=== PATIENT | female | born 1980 | race African-American/Black ===

== ENCOUNTER 2019-07-05 17:39 | Emergency (ER) | payer SELFPAY ==
[~2019-07-05] VITALS: Ht 172.7 cm; Wt 95.3 kg
[2019-07-05] MEDS ORDERED: Acetaminophen 500mg (ES) tab ORAL ONE ×2 (17:45→17:54)
--- NOTE | 2019-07-05 17:52 | NUR ---
ED Nurse Note: xray at bedside
--- NOTE | 2019-07-05 17:52 | NUR ---
ED Nurse Note: ERMD at bedside
--- NOTE | 2019-07-05 17:56 | NUR ---
ED Nurse Note: Patient BIBA from home d/t headache started today. Patient states she has history of HTN and DM, has not taken her BP meds for 2 days. Patient was placed on hospital gown, cont. asset protection manager showing sinus tachycardia with HR of 120's, cont pulse ox, patient saturating 100%; no respiratory distress. C/o headache 7/10 pain scale; denies n/v. Blood glucose 135. IV on right hand 18g intact and patent, established en route per EMS. ERMD at bedside. Will continue to monitor patient and carry out orders.
--- NOTE | 2019-07-05 17:58 | Emergency Room Report ---
History of Present Illness General Chief Complaint: Headache Source: Patient Present Illness HPI Disclaimer: Please note that this report is being documented using [employer] technology. This can lead to erroneous entry secondary to incorrect interpretation by the dictating instrument. HPI: 39-year-old female history of hypertension presents for evaluation of headache and elevated blood pressures. The patient states EMS was called by her mother as she was difficult to arouse and had a prolonged sleep. States she has been feeling generally unwell for the past few days noting fatigue, congestion, sore throat but denies vomiting, diarrhea, severe chest pain, cough , shortness of breath or other symptoms. She was found to be tachycardic and hypertensive with systolic blood pressures in the 190s. At the time she was complaining of a bilateral temporal throbbing headache. She denies visual changes and states her headache is improved. Says that she has been without her antihypertensive medications for 2 days because she forgot to take them. Cannot recall which medication she is taking. She continues to complain of bilateral lower rib pain which she has had for several days. Otherwise she states she has no symptoms and is generally improved. Heart rate is tachycardic but states she has no history of abnormal heart rhythm such as SVT, A. fib, a flutter or other heart diseases. She uses alcohol but has not used any in the past few days. Denies any withdrawal or daily use. Remote history of drug use but states she has been off drugs for years. PMH: Hypertension, remote drug use PSH: Denies Allergies: Denies Social Hx: Occasional alcohol use, remote drug use, denies tobacco use Allergies: Coded Allergies: No Known Allergies (Unverified , 07/05/19) Patient History Now: No Nursing Documentation-PMH Past Medical History: No History, Except For Hx Hypertension: Yes Hx Asthma: Yes Hx Diabetes: Yes Review of Systems All Other Systems: negative except mentioned in HPI Physical Exam Vital Signs Date Time Temp Pulse Resp B/P (MAP) Pulse Ox O2 Delivery O2 Flow Rate FiO2 07/05/19 17:35 99.9 127 16 110/70 (83) 98 Room Air General: Awake and alert, appears anxious and somewhat restless HEENT: NC/AT. EOMI. PERRLA. Pupils are 4 mm and reactive bilaterally. Dry mucous membranes Neck: Supple, trachea midline Chest Wall: Mild tenderness over the lower ribs bilaterally without crepitus or deformity. No tenderness, no deformity Cardiovascular: Tachycardic. S1 and S2 normal. No murmur appreciated Resp: Normal work of breathing. No cough, wheezing or crackles appreciated Abdomen: Abdomen is soft, nondistended. Tenderness in the epigastrium but no significant tenderness in the right or left upper quadrants. Otherwise nontender. Obese abdomen Skin: Intact. No abrasions, laceration or rash over the exposed skin MSK: Normal tone and bulk. Moving all extremities. No obvious deformity. Neuro: Awake and alert. Mentating appropriately. No nystagmus. Visual alcantara are full. Symmetrical facial expressions. Moving all extremities. Medical Decision Making Diagnostic Impression: Primary Impression: Headache Additional Impressions: Hypertension Amphetamine abuse ER Course 39-year-old female with a history of hypertension presents for evaluation of elevated blood pressures, tachycardia and reported headache. Patient states her symptoms are almost resolved though she does remain tachycardic she denies palpitations or chest pain. She has been complaining of bilateral rib pain for several days and states she is been feeling generally rundown and unwell. States her mom called EMS that she was difficult to arouse and slept for nearly 18 hours which she attributes to exhaustion and general illness. Denies any alcohol or drug use recently. We will start broad metabolic infectious and toxicologic work-up. Her blood pressures on arrival are within normal limits with current blood pressure 112/65. Laboratory Tests Test 07/05/19 17:45 07/05/19 18:49 White Blood Count 16.9 K/UL (4.8-10.8) H Red Blood Count 4.66 M/UL (4.20-5.40) Hemoglobin 11.3 G/DL (12.0-16.0) L Hematocrit 35.8 % (37.0-47.0) L Mean Corpuscular Volume 77 FL (80-99) L Mean Corpuscular Hemoglobin 24.2 PG (27.0-31.0) L Mean Corpuscular Hemoglobin Concent 31.5 G/DL (32.0-36.0) L Red Cell Distribution Width 12.6 % (11.6-14.8) Platelet Count 390 K/UL (150-450) Mean Platelet Volume 5.8 FL (6.5-10.1) L Neutrophils (%) (Auto) % (45.0-75.0) Lymphocytes (%) (Auto) % (20.0-45.0) Monocytes (%) (Auto) % (1.0-10.0) Eosinophils (%) (Auto) % (0.0-3.0) Basophils (%) (Auto) % (0.0-2.0) Neutrophils % (Manual) Pending Lymphocytes % (Manual) Pending Platelet Estimate Pending Platelet Morphology Pending Sodium Level 139 MMOL/L (136-145) Potassium Level 3.5 MMOL/L (3.5-5.1) Chloride Level 104 MMOL/L (98-107) Carbon Dioxide Level 22 MMOL/L (21-32) Anion Gap 13 mmol/L (5-15) Blood Urea Nitrogen 13 mg/dL (7-18) Creatinine 1.2 MG/DL (0.55-1.30) Estimate Glomerular Filtration Rate 49.8 mL/min (>60) Glucose Level 115 MG/DL (74-106) H Calcium Level 9.1 MG/DL (8.5-10.1) Total Bilirubin 0.7 MG/DL (0.2-1.0) Aspartate Amino Transferase (AST) 17 U/L (15-37) Alanine Aminotransferase (ALT) 31 U/L (12-78) Alkaline Phosphatase 44 U/L (46-116) L Troponin I 0.000 ng/mL (0.000-0.056) Total Protein 8.2 G/DL (6.4-8.2) Albumin 3.9 G/DL (3.4-5.0) Globulin 4.3 g/dL Albumin/Globulin Ratio 0.9 (1.0-2.7) L Lipase 81 U/L (73-393) Salicylates Level < 0.2 ug/mL (2.8-20) L Acetaminophen Level < 2 MCG/ML (10-30) L Serum Alcohol < 3 mg/dL Urine Opiates Screen Negative (NEGATIVE) Urine Barbiturates Screen Negative (NEGATIVE) Phencyclidine (PCP) Screen Negative (NEGATIVE) Urine Amphetamines Screen Positive (NEGATIVE) H Urine Benzodiazepines Screen Negative (NEGATIVE) Urine Cocaine Screen Negative (NEGATIVE) Urine Marijuana (THC) Screen Negative (NEGATIVE) EKG Diagnostic Results EKG Time: 18:00 Rate: tachycardiac Rhythm: NSR ST Segments: no acute changes Other Impression Sinus tachycardia, borderline left axis deviation, normal intervals, no ST segment changes. Rhythm Strip Diag. Results Rhythm Strip Time: 18:00 EP Interpretation: yes Rate: 110s Rhythm: NSR, no PVC's, no ectopy Chest X-Ray Diagnostic Results Chest X-Ray Diagnostic Results : Chest X-Ray Ordered: Yes # of Views/Limited/Complete: 1 View Indication: Chest Pain EP Interpretation: Yes Interpretation: no consolidation, no effusion, no pneumothorax, no acute cardiopulmonary disease Impression: No acute disease Electronically Signed by: Electronically signed by Dr. Ten Ortiz Reevaluation Time: 19:30 Last Vital Signs Date Time Temp Pulse Resp B/P (MAP) Pulse Ox O2 Delivery O2 Flow Rate FiO2 07/05/19 17:35 99.9 127 16 110/70 (83) 98 Room Air Reevaluation Impression Labs show slight elevation of white count but no major electrolyte abnormalities , normal renal function, negative troponin and a talk screen is positive for amphetamines. Patient's heart rate is improving. She remains agitated but is calm, answering questions appropriately in no acute distress. Believe her symptoms today along with her uncontrolled hypertension are secondary to amphetamine abuse. I counseled the patient on her amphetamine use disorder as well as need to follow-up with her PMD and restart taking her medications. I counseled on the dangers of missing beta-blockers and amphetamines together and strongly encouraged her to follow-up with her PMD and stop using any illicit drugs as best as possible. Also included resources for her to follow-up with on an outpatient basis. Vital signs are otherwise stable and the patient is appropriate for outpatient follow-up. She will be discharged home to follow-up with PMD. Discussed reasons to return to the emergency department. She understands and agrees with this treatment plan. Disposition: HOME, SELF-CARE Condition: Stable Ten Ortiz MD Jul 05, 2019 17:57
[2019-07-05 18:04] LABS: HEMATOCRIT 35.8 % (37.0-47.0); HEMOGLOBIN 11.3 G/DL (12.0-16.0); MEAN CORPUSCULAR VOLUME 77 FL (80-99); PLATELET COUNT 390 K/UL (150-450); RED BLOOD COUNT 4.66 M/UL (4.20-5.40); RED CELL DISTRIBUTION WIDTH 12.6 % (11.6-14.8); WHITE BLOOD COUNT 16.9 K/UL (4.8-10.8)
[2019-07-05 18:05] VITALS: BP 112/70
[2019-07-05 18:26] LABS: ANION GAP 13 mmol/L (5-15); BLOOD UREA NITROGEN 13 mg/dL (7-18); CALCIUM 9.1 MG/DL (8.5-10.1); CARBON DIOXIDE 22 MMOL/L (21-32); CHLORIDE 104 MMOL/L (98-107); CREATININE 1.2 MG/DL (0.55-1.30); POTASSIUM 3.5 MMOL/L (3.5-5.1); SODIUM 139 MMOL/L (136-145)
[2019-07-05 18:30] LABS: ALANINE AMINOTRANSFERASE 31 U/L (12-78); ALBUMIN 3.9 G/DL (3.4-5.0); ALBUMIN/GLOBULIN RATIO 0.9 (1.0-2.7); ALKALINE PHOSPHATASE 44 U/L (46-116); ASPARTATE AMINO TRANSFERASE 17 U/L (15-37); BILIRUBIN,TOTAL 0.7 MG/DL (0.2-1.0)
--- NOTE | 2019-07-05 18:50 | NUR ---
ED Nurse Note: urine collected and sent down to lab
--- NOTE | 2019-07-05 19:14 | NUR ---
HAND-OFF: Report given to ADITI Flynn.
[2019-07-05 19:34] VITALS: BP 121/72
[2019-07-05 19:35] VITALS: BP 121/72
--- NOTE | 2019-07-05 19:35 | NUR ---
ER DISCHARGE NOTE: Patient is cleared to be discharged per ERMD, pt is aox4, on room air, with stable vital signs. pt was given dc and prescription instructions, pt was able to verbalize understanding, pt id band and iv site removed without complications. pt is able to ambulate with steady gait. pt took all belongings. HR 102.
--- NOTE | 2019-07-06 11:36 | Diagnostic Imaging Report ---
Indication: Chest pain Technique: One view of the chest Comparison: none Findings: Lungs and pleural spaces are clear. Heart size is normal. Impression: No acute process
== END 2019-07-05 19:35 | disposition home or self-care (01) ==
LOC: EDBD 17:39 → EMR 18:04
DX: R51 Headache (principal); I10 Essential (primary) hypertension; F15.10 Other stimulant abuse, uncomplicated; R07.89 Other chest pain; E11.9 Type 2 diabetes mellitus without complications; R00.0 Tachycardia, unspecified
CPT/HCPCS: 36415; 71045; 80053; 80307; 83690; 84484; 85007; 85025; 93005; 96360; 99284; G0480; J7030